=== PATIENT | male | born 1975 | race Two or more races ===

== ENCOUNTER 2019-03-27 15:07 | Emergency (ER) | payer BC, OTHER ==
[~2019-03-27] VITALS: Ht 175.3 cm; Wt 109.3 kg
[2019-03-27 16:09] LABS: Basophils # (auto) 0 uL; Basophils % (auto) 0.5 % (0.0-2.0); Eosinophils # (auto) 0.1 uL; Eosinophils % (auto) 1.3 % (0.0-7.0); Hematocrit 49.3 % (41.0-53.0); Hemoglobin 17.2 g/dL (13.5-17.5); Lymphocytes # (auto) 2.1 uL; Lymphocytes % (auto) 28.5 % (10.0-50.0); Mean Corpuscular Hemoglobin 32.2 pg (28.0-32.0); Mean Corpuscular Hgb Conc. 34.8 g/dL (32.0-36.0); Mean Corpuscular Volume 92.5 fL (80.0-100.0); Monocytes # (auto) 0.4 uL; Monocytes % (auto) 6.1 % (0.0-12.0); Neutrophils # (auto) 4.7 uL; Neutrophils % (auto) 63.6 % (37.0-80.0); Nucleated Red Blood Cells % 0.1 %; Platelet Count (auto) 167 10^3/uL (140-450); Red Blood Cells 5.33 10^6/uL (4.5-5.90); Red Cell Distribution Width 12.9 % (11.8-14.3); White Blood Cell 7.3 10^3/uL (4.4-10.8)
[2019-03-27] MEDS ORDERED: ASPirin 81 mg TAB PO ONE (16:15)
[2019-03-27 16:27] LABS: Albumin 4.1 g/dL (3.4-5.0); Anion Gap 9 (5-15); Blood Urea Nitrogen 13 mg/dL (7-18); Calcium 9.4 mg/dL (8.5-10.1); Carbon Dioxide 25 mmol/L (21-32); Chloride 104 mmol/L (98-107); Glucose 177 mg/dL (74-106); Potassium 3.3 mmol/L (3.5-5.1); Sodium 138 mmol/L (136-145)
[2019-03-27 16:31] LABS: Alanine Aminotransferase 60 U/L (16-61); Alkaline Phosphatase 81 U/L (45-117); Aspartate Aminotransferase 23 U/L (15-37); BUN/Creatinine Ratio 11.7; Bilirubin, Total 0.4 mg/dL (0.2-1.0); GFR African American 93 mL/min; GFR Non-African American 77 mL/min; Total Protein 8.1 g/dL (6.4-8.2)
[2019-03-27 17:43] VITALS: BP 157/88
== END 2019-03-27 17:47 | disposition home or self-care (01) ==
LOC: ER 15:15
DX: R07.89 Other chest pain (principal); I16.0 Hypertensive urgency
CPT/HCPCS: 36415; 71046; 80053; 84484; 85025; 93005

== ENCOUNTER 2024-06-25 22:33 | Emergency (ER) | payer BC, OTHER ==
[~2024-06-25] VITALS: Ht 167.6 cm; Wt 107.0 kg
[2024-06-25] MEDS: cloNIDine HCL 0.1 MG TAB PO ONE (22:52)
[2024-06-26 01:01] VITALS: BP 158/77; PULSE 70; RESP 16; TEMP 97.8; O2SAT 93
[2024-06-26] MEDS ORDERED: CLON0.2T PO (01:21)
[2024-06-26] MEDS ORDERED: LISI10TA34 PO (01:21)
--- NOTE | 2024-06-26 01:22 | ED.PDOC ---
History of Present Illness HPI Comments This patient is a morbidly obese 49-year-old male who arrives to the ED today for request of blood pressure medication refill. Patient states he recently lost his insurance in his swabbed over to a new insurance without having a refill assignment for his lisinopril 10 mg. Patient states he has not taken blood pressure medication for the past week. At time of evaluation, patient's blood pressure was 181/103. Chief Complaint: High Blood Pressure Time Seen by MD: 22:35 Primary Care Provider: [facility] Reviewed Notes: Nurses Notes Allergies: Coded Allergies: NO KNOWN ALLERGIES (Unverified , 03/27/19) Information Source: Patient Mode of Arrival: Ambulatory Severity: Moderate Timing: Days Duration: Since onset Prehospital treatment: None Medication Refill: Ran out of Medication, For: Hypertension Past Medical History PAST MEDICAL HISTORY: HTN Surgical History: Denies all surgeries Family History Family History: No family hx ofKidney chiara, No family hx of Liver chiara, No family hx of Lung chiara, No family hx of Stroke, Family hx of DM Social History Smoker: Non-Smoker Alcohol: Occasionally Drugs: Denies Drug Use Lives In: Home Constitutional: denies: chills, diaphoresis, fatigue, fever, malaise, sweats, weakness, others EENTM: denies: blurred vision, double vision, ear bleeding, ear discharge, ear drainage, ear pain, ear ringing, eye pain, eye redness, hearing loss, mouth pain, mouth swelling, nasal discharge, nose bleeding, nose congestion, nose pain, photophobia, tearing, throat pain, throat swelling, voice changes, others Respiratory: denies: cough, hemoptysis, orthopnea, SOB at rest, shortness of breath, SOB with excertion, stridor, wheezing, others Cardiovascular: denies: chest pain, dizzy spells, diaphoresis, Dyspnea on exertion, edema, irregular heart beat, left arm pain, lightheadedness, palpitations, PND, syncope, others Gastrointestinal: denies: abdomen distended, abdominal pain, blood streaked bowels, constipated, diarrhea, dysphagia, difficulty swallowing, hematemesis, melena, nausea, poor appetite, poor fluid intake, rectal bleeding, rectal pain, vomiting, others Genitourinary: denies: burning, dysuria, flank pain, frequency, hematuria, incontinence, penile discharge, penile sore, pain, testicle pain, testicle swelling, urgency, others Neurological: reports: headache; denies: dizziness, fainting, left sided numbness, left sided weakness, numbness, paresthesia, pre-existing deficit, right sided numbness, right sided weakness, seizure, speech problems, tingling, tremors, weakness, others Musculoskeletal: denies: back pain, gout, joint pain, joint swelling, muscle pain, muscle stiffness, neck pain, others Integumetry: denies: bruises, change in color, change in hair/nails, dryness, laceration, lesions, lumps, rash, wounds, others Allergic/Immunocompromised: denies: Difficulty Healing, Frequent Infections, Hives, Itching, others Hematologic/Lymphatic: denies: anemia, blood clots, easy bleeding, easy bruising, swollen glands, others Endocrine: denies: excessive hunger, excessive sweating, excessive thirst, excessive urination, flushing, intolerance to cold, intolerance to heat, un explained weight gain, unexplained weight loss, others Psychiatric: denies: anxiety, bipolar disorder, depression, hopeless, panic disorder, schizophrenia, sleepless, suicidal, others Physical Exam General Appearance: Mild Distress (Moderate distress due to mild headache concern.), Normal HEENT: Normal ENT Inspection, Pharynx Normal, TMs Normal Neck: Full Range of Motion, Non-Tender, Normal, Normal Inspection Respiratory: Chest Non-Tender, Lungs Clear, No Accessory Muscle Use, No Respiratory Distress, Normal Breath Sounds Cardiovascular: No Edema, No JVD, No Murmur, No Gallop, Normal Peripheral Pulses, Regular Rate/Rhythm Breast Exam: Deferred Gastrointestinal: No Organomegaly, Non Tender, No Pulsatile Mass, Normal Bowel Sounds, Soft Genitalia: Deferred Pelvic: Deferred Rectal: Deferred Extremities: No calf tenderness, Normal capillary refill, Normal inspection, N ormal range of motion, Non-tender, No pedal edema Neurologic: Alert, No Motor Deficits, Normal Affect, Normal Mood, No Sensory Deficits Cerebellar Function: Normal Reflexes: Normal Skin: Dry, Normal Color, Warm Lymphatic: No Adenopathy Was a procedure done? Was a procedure done?: No Differential Dx Considerations may include: Hypertensive urgency, medication refills X-Ray, Labs, Meds, VS Vital Signs Date Time Temp Pulse Resp B/P (MAP) Pulse Ox O2 Delivery O2 Flow Rate FiO2 06/26/24 01:01 97.8 70 16 158/77 (104) 93 97.8 06/25/24 22:53 98.6 86 16 181/103 (129) 98 98.6 06/25/24 22:52 181/103 Current Medications Medications (Trade) Dose Ordered Sig/Bethany Route Start Time Stop Time Status Last Admin Clonidine HCl (Catapres Tablet) 0.2 mg ONCE ONCE PO 06/25/24 23:00 06/25/24 23:01 DC 06/25/24 22:52 X-Ray, Labs, Meds, VS Comment Patient's blood pressure reduced to an acceptable range at discharge. Advised patient to utilize medication as directed as well as emergent medication as needed. Patient needs to establish a primary care provider for long-term management of his blood pressure concerns. Time of 1ST Reevaluation: Reevaluation 1ST: Improved Consultation: PCP Patient Education/Counseling: Diagnosis, Treatment Family Education/Counseling: Diagnosis, Treatment Departure 1 Departure Time of Disposition: Impression: Primary Impression: Hypertensive urgency Additional Impression: Medication refill Disposition: HOME / SELF CARE / HOMELESS Condition: Stable Additional Instructions: Advised patient utilize medication as as directed as well as additional medication on an as-needed basis. Patient needs to follow up with the primary care provider to establish long-term blood pressure management. e-Prescriptions Clonidine Hydrochloride (Clonidine Hcl) 0.2 Mg Tab 1 TAB PO BID, #10 TAB 0 Refills Prov: CHRISTIAN SANDERSON [facility] 06/26/24 Lisinopril (Lisinopril) 10 Mg Tab 10 MG PO DAILY for 30 Days, #30 TAB Prov: CHRISTIAN SANDERSON [facility] 06/26/24 Discharged With: Self, Friend Critical Care Note Critical Care Time?: No Stability Stability form required: No Heart Score Heart Score: Heart Score Response (Comments) Value History Slightly Suspicious 0 EKG Repolarization Disturb 1 Age 45-64 1 Risk Factors 1 or 2 risk factors 1 Troponin N/A 0 Total 3 CHRISTIAN SANDERSON PAC Jun 26, 2024 01:22
== END 2024-06-26 01:55 | disposition home or self-care (01) ==
LOC: ER 22:33
DX: I16.0 Hypertensive urgency (principal); I10 Essential (primary) hypertension; Z76.0 Encounter for issue of repeat prescription